=== PATIENT | female | born 1945 | race Caucasian/White ===

== ENCOUNTER 2023-10-06 22:57 | Inpatient (IN) | payer OTHER, MEDICARE ==
[2023-10-06 23:17] VITALS: BMI 31.7
[2023-10-06] MEDS ORDERED: methylPREDNISolone NA SUCC 125 MG/2 ML VIAL ONE (23:53)
[2023-10-07] MEDS: ALBUTEROL SO4 2.5/IPRATROPIUM 0.5 INH SOL 3 ML VIAL.NEB. NEB SCH (00:14)
[2023-10-07] MEDS: methylPREDNISolone NA SUCC 125 MG/2 ML VIAL IVPUSH ONE (00:14)
[2023-10-07] MEDS ORDERED: ALBUTEROL SO4 2.5/IPRATROPIUM 0.5 INH SOL 3 ML VIAL.NEB. NEB ONE (00:15)
[2023-10-07 00:31] LABS: BASO % 0.1 % (0-2.0); EOS % 0.1 % (0-4.5); HEMATOCRIT 32.7 % (32.4-45.2); HEMOGLOBIN 11.2 GM/dL (10.7-15.3); LYMPH % 17.1 % (8-40); MCHC 34.2 g/dl (32.0-36.0); MEAN CELL VOLUME 93.5 fl (80-96); MEAN PLT VOLUME 7.8 fl (7.5-11.1); MONO % 2.9 % (3.8-10.2); NEUT % 79.8 % (42.8-82.8); PLATELET COUNT 130 10^3/uL (134-434); RBC 3.49 M/mm3 (3.60-5.2); WHITE BLOOD COUNT 5.9 K/mm3 (4.0-10.0)
[2023-10-07 00:53] LABS: POTASSIUM 4.5 mmol/L (3.5-5.1)
[2023-10-07 00:55] LABS: ALBUMIN 3.4 g/dl (3.4-5.0); BLOOD UREA NITROGEN 24.2 mg/dL (7-18); CALCIUM 8.6 mg/dL (8.5-10.1); MAGNESIUM 1.4 mg/dL (1.8-2.4)
[2023-10-07 00:58] LABS: CREATININE 1.5 mg/dL (0.55-1.3)
[2023-10-07 01:00] LABS: TOT PROT 6.7 g/dl (6.4-8.2)
[2023-10-07] MEDS ORDERED: AZITHROMYCIN IVPB 500 MG/250 ML BAG IVPB ONE ×2 (01:05→22:01)
[2023-10-07] MEDS: AZITHROMYCIN IVPB 500 MG in DEXTROSE 5%-WATER - 250 ML IVPB ONE (01:22)
[2023-10-07] MEDS ORDERED: FUROSEMIDE 40 MG/4 ML INJECTABLE VIAL ONE (02:57)
[2023-10-07] MEDS: FUROSEMIDE 40 MG/4 ML INJECTABLE VIAL IVPUSH ONE ×2 (03:05→09:51)
[2023-10-07] MEDS ORDERED: CEFTRIAXONE 1 GM/50 ML BAG ONE ×2 (04:15→22:01)
[2023-10-07] MEDS: CEFTRIAXONE 1,000 MG in DEXTROSE 5%-WATER - 50 ML IVPB ONE (04:22)
[2023-10-07] MEDS: ACETAMINOPHEN 1000 MG/100 ML BAG IVPB ONE (05:45)
[2023-10-07 06:13] LABS: N-TERMINAL BNP 3697.9 pg/ml (5-450)
[2023-10-07] MEDS: INSULIN ASPART SLIDING SCALE (NOVOLOG) 1 VIAL SQ SCH ×2 (09:37→22:27)
[2023-10-07] MEDS: LEVOTHYROXINE NA 50 MCG TABLET (FP) PO SCH (09:50)
[2023-10-07] MEDS: methylPREDNISolone NA SUCC 40 MG/1 ML VIAL IVPUSH SCH (09:50)
[2023-10-07] MEDS: PANTOPRAZOLE SOD 40 MG SUSPENSION PACKET PO SCH (09:50)
[2023-10-07] MEDS ORDERED: ALBUTEROL SO4 2.5/IPRATROPIUM 0.5 INH SOL 3 ML VIAL.NEB. NEB PRN (10:38)
[2023-10-07] MEDS ORDERED: ACETAMINOPHEN 1000 MG/100 ML BAG IVPB PRN (12:00)
[2023-10-07] MEDS: guaiFENesin 200 MG/10 ML 10 ML UNIT-DOSE CUPS PO PRN (13:03)
[2023-10-07] MEDS ORDERED: INSULIN (LEVEMIR) 100 UNITS/ML UNITS SQ SCH (22:00)
[2023-10-07] MEDS ORDERED: ATORVASTATIN CA 10 MG TABLET (FP) ONE (22:01)
[2023-10-07] MEDS ORDERED: methylPREDNISolone NA SUCC 40 MG/1 ML VIAL ONE (22:01)
[2023-10-07] MEDS: INSULIN (LEVEMIR) 100 UNITS/ML UNITS SQ SCH (22:26)
[2023-10-07] MEDS: CEFTRIAXONE 1 GM in DEXTROSE 5%-WATER - 50 ML IVPB SCH (22:27)
[2023-10-07] MEDS: AZITHROMYCIN IVPB 500 MG/250 ML BAG IVPB SCH (22:27)
[2023-10-07] MEDS: ATORVASTATIN CA 10 MG TABLET (FP) PO SCH (22:27)
[2023-10-08 08:21] LABS: INR 1.02 (0.83-1.09); PROTHROMBIN TIME (PATIENT) 11.8 SEC (9.7-13.0)
[2023-10-08 08:24] LABS: ACTIVATED PTT 22.9 SECONDS (25.2-36.5)
[2023-10-08 08:38] LABS: HEMATOCRIT 34.2 % (32.4-45.2); HEMOGLOBIN 11.3 GM/dL (10.7-15.3); MCH 30.8 pg (25.7-33.7); MCHC 33.1 g/dl (32.0-36.0); MEAN CELL VOLUME 93.2 fl (80-96); MEAN PLT VOLUME 8.2 fl (7.5-11.1); PLATELET COUNT 152 10^3/uL (134-434); POTASSIUM 4.6 mmol/L (3.5-5.1); RBC 3.67 M/mm3 (3.60-5.2); RDW 13.8 % (11.6-15.6)
[2023-10-08 08:45] LABS: CALCIUM 8.6 mg/dL (8.5-10.1)
[2023-10-08 08:46] LABS: ALBUMIN 3.2 g/dl (3.4-5.0); BLOOD UREA NITROGEN 45.6 mg/dL (7-18); MAGNESIUM 1.9 mg/dL (1.8-2.4)
[2023-10-08 08:47] LABS: TOT PROT 6.5 g/dl (6.4-8.2)
[2023-10-08 08:48] LABS: BILIRUBIN,TOTAL 0.7 mg/dL (0.2-1); PHOSPHOROUS 3.9 mg/dL (2.5-4.9)
[2023-10-08 08:49] LABS: CREATININE 1.4 mg/dL (0.55-1.3)
[2023-10-08] MEDS ORDERED: PANTOPRAZOLE 40 MG TABLET PO ONE (09:14)
[2023-10-08] MEDS ORDERED: LEVOTHYROXINE NA 50 MCG TABLET (FP) ONE (09:15)
[2023-10-08] MEDS ORDERED: methylPREDNISolone NA SUCC 40 MG/1 ML VIAL ONE (09:15)
[2023-10-08 10:00] LABS: ANISOCYTOSIS 0; MACROCYTOSIS 0
[2023-10-08] MEDS: HEPARIN NA (PORCINE) 5,000 UNITS/ML 1ML VIAL SQ SCH (15:31)
[2023-10-08] MEDS: INSULIN (LEVEMIR) 100 UNITS/ML UNITS SQ SCH (21:41)
[2023-10-09] MEDS: ACETAMINOPHEN 325 MG TABLET (FP) PO PRN (09:42)
[2023-10-09] MEDS: FUROSEMIDE 40 MG/4 ML INJECTABLE VIAL IVPUSH ONE (11:49)
[2023-10-10 07:20] LABS: BASO % 0.2 % (0-2.0); HEMATOCRIT 35.2 % (32.4-45.2); HEMOGLOBIN 11.9 GM/dL (10.7-15.3); LYMPH % 11.7 % (8-40); MCH 31.3 pg (25.7-33.7); MCHC 33.7 g/dl (32.0-36.0); MEAN CELL VOLUME 92.7 fl (80-96); MEAN PLT VOLUME 8.4 fl (7.5-11.1); MONO % 3.4 % (3.8-10.2); NEUT % 84.7 % (42.8-82.8); PLATELET COUNT 210 10^3/uL (134-434); RBC 3.79 M/mm3 (3.60-5.2); RDW 13.9 % (11.6-15.6); WHITE BLOOD COUNT 10.6 K/mm3 (4.0-10.0)
[2023-10-10 07:32] LABS: POTASSIUM 4.1 mmol/L (3.5-5.1)
[2023-10-10 07:38] LABS: CALCIUM 9.1 mg/dL (8.5-10.1)
[2023-10-10 07:39] LABS: ALBUMIN 2.8 g/dl (3.4-5.0); BLOOD UREA NITROGEN 54.5 mg/dL (7-18)
[2023-10-10 07:42] LABS: CREATININE 1.1 mg/dL (0.55-1.3)
[2023-10-10 07:44] LABS: BILIRUBIN,TOTAL 0.7 mg/dL (0.2-1); TOT PROT 6.3 g/dl (6.4-8.2)
[2023-10-10] MEDS: AZITHROMYCIN 250 MG TABLET PO SCH (22:48)
[2023-10-11] MEDS: methylPREDNISolone NA SUCC 40 MG/1 ML VIAL IVPUSH SCH (21:45)
[2023-10-11] MEDS ORDERED: INSULIN (NOVOLOG) ASPART 100 UNITS/ML 10ML VIAL ONE (21:54)
[2023-10-12 08:46] VITALS: BP 141/63; PULSE 63; RESP 20; TEMP 97.7
== END 2023-10-12 14:46 | disposition home or self-care (01) | DRG 193 ==
LOC: JER 22:57 → JERBED 10-07 03:12 → OBSVTOIN 10-07 09:39 → J4W 10-08 11:39
PROVIDERS: ADMIT Internal Medicine; ATTEND Internal Medicine
DX: J18.9 Pneumonia, unspecified organism (principal); I50.31 Acute diastolic (congestive) heart failure; I11.0 Hypertensive heart disease with heart failure; E03.9 Hypothyroidism, unspecified; E78.5 Hyperlipidemia, unspecified; E11.9 Type 2 diabetes mellitus without complications; B97.81 Human metapneumovirus as the cause of diseases classified elsewhere; J98.01 Acute bronchospasm
CPT/HCPCS: 0241U-QW; 36415; 71045-TC-FY; 80048; 80053; 82962; 83735; 83880; 84100; 84484; 85025; 85610; 85730; 87040; 87633; 87899; 93005; 93010; 93306-TC; 97116-GP; 97162-GP; 99285-25; G0378; J0131; J1644

== ENCOUNTER 2023-10-26 17:51 | Emergency (ER) | payer OTHER, MEDICARE ==
[2023-10-26] MEDS ORDERED: OXYMETAZOLINE 0.05% NASAL SOLUTION 15 ML BOTTLE NS ONE (18:07)
[2023-10-26 18:11] VITALS: BP 126/69; PULSE 87; RESP 20; TEMP 98.2; BMI 25.7
[2023-10-26] MEDS: OXYMETAZOLINE 0.05% NASAL SOLUTION 15 ML BOTTLE NS ONE (18:48)
== END 2023-10-26 18:58 | disposition home or self-care (01) ==
LOC: FER 17:51
DX: R04.0 Epistaxis (principal)
CPT/HCPCS: 99283-25

== ENCOUNTER 2023-12-19 22:41 | Inpatient (IN) | payer OTHER, MEDICARE ==
[2023-12-19] MEDS: SODIUM CHLORIDE 0.9% 500 ML INFUS.BAG IV ONE (23:18)
[2023-12-19 23:31] LABS: INR 1.03 (0.83-1.09)
[2023-12-19 23:35] LABS: HEMOGLOBIN 13.2 G/dL (10.7-15.3); MCH 31.9 pg (25.7-33.7); MEAN CELL VOLUME 96.8 fl (80-96); MEAN PLT VOLUME 7.4 fl (7.5-11.1); PLATELET COUNT 190.4 10^3/uL (134-434); RBC 4.13 10^6/uL (3.60-5.2); RDW 15.7 % (11.6-15.6); WHITE BLOOD COUNT 13.4 10^3/uL (4.0-10.8)
[2023-12-19 23:42] LABS: ALBUMIN 4.7 g/dl (3.4-5.0); BILIRUBIN,TOTAL 1.1 mg/dl (0.2-1); CALCIUM 9.3 mg/dl (8.5-10.1); CREATININE 2.2 mg/dl (0.6-1.3); POTASSIUM 4.6 mmol/L (3.5-5.1); TOT PROT 7.1 g/dl (6.4-8.2)
[2023-12-19 23:53] LABS: PLATELET ESTIMATE ADEQUATE
[2023-12-20] MEDS ORDERED: INSULIN REGULAR HUMAN 100 UNITS/ML *VIAL ONE (00:56)
[2023-12-20] MEDS: INSULIN REGULAR HUMAN 100 UNITS/ML *VIAL IVPUSH ONE (00:58)
[2023-12-20 02:15] VITALS: BMI 25.4
[2023-12-20] MEDS: DEXTROSE 5%-NORMAL SALINE 1,000 ML IV SCH (02:25)
[2023-12-20 04:05] LABS: MEAN PLT VOLUME 7.2 fl (7.5-11.1)
[2023-12-20 04:10] LABS: BASO % 0.1 % (0-2.0); HEMATOCRIT 37.8 % (32.4-45.2); HEMOGLOBIN 12.8 GM/dL (10.7-15.3); LYMPH % 7.7 % (8-40); MCH 32.3 pg (25.7-33.7); MCHC 33.8 g/dl (32.0-36.0); MEAN CELL VOLUME 95.7 fl (80-96); MONO % 4.1 % (3.8-10.2); NEUT % 88.1 % (42.8-82.8); PLATELET COUNT 194 10^3/uL (134-434); RBC 3.95 M/mm3 (3.60-5.2); RDW 16.7 % (11.6-15.6); WHITE BLOOD COUNT 13.8 K/mm3 (4.0-10.0)
[2023-12-20 04:23] LABS: POTASSIUM 4.3 mmol/L (3.5-5.1)
[2023-12-20 04:24] LABS: CALCIUM 8.6 mg/dL (8.5-10.1)
[2023-12-20 04:25] LABS: BLOOD UREA NITROGEN 46.6 mg/dL (7-18)
[2023-12-20 04:28] LABS: CREATININE 2.1 mg/dL (0.55-1.3)
[2023-12-20] MEDS: DEXTROSE 5%-0.45% SALINE 1,000 ML IV SCH (06:45)
[2023-12-20] MEDS: INSULIN (NOVOLOG) ASPART 100 UNITS/ML 10ML VIAL SQ ONE ×2 (06:46→17:23)
[2023-12-20] MEDS: INSULIN (LEVEMIR) 100 UNITS/ML UNITS SQ SCH (10:02)
[2023-12-20] MEDS: HEPARIN NA (PORCINE) 5,000 UNITS/ML 1ML VIAL SQ SCH (10:02)
[2023-12-20] MEDS: CEFTRIAXONE 1 GM in DEXTROSE 5%-WATER - 50 ML IVPB SCH (10:02)
[2023-12-20 15:34] LABS: EPITHELIAL CELLS 0-5 /hpf
[2023-12-20] MEDS ORDERED: ACETAMINOPHEN INJECTION 100 ML IVPB PRN (15:35)
[2023-12-20] MEDS: SODIUM CHLORIDE 1,000 ML IV SCH (17:24)
[2023-12-20] MEDS: SODIUM CHLORIDE 250 ML IV STA (17:24)
[2023-12-20] MEDS ORDERED: ACETAMINOPHEN 1000 MG/100 ML BAG IVPB PRN (19:00)
[2023-12-20] MEDS: DOXYCYCLINE INJECTION 100 MG in DEXTROSE 5%-WATER 100 ML IVPB SCH (22:23)
[2023-12-21 08:27] LABS: HEMATOCRIT 37.6 % (32.4-45.2); HEMOGLOBIN 12.1 G/dL (10.7-15.3); MCH 30.9 pg (25.7-33.7); MCHC 32.1 g/dl (32.0-36.0); MEAN CELL VOLUME 96.2 fl (80-96); MEAN PLT VOLUME 8.2 fl (7.5-11.1); PLATELET COUNT 131.1 10^3/uL (134-434); RBC 3.91 10^6/uL (3.60-5.2); RDW 15.9 % (11.6-15.6); WHITE BLOOD COUNT 8.9 10^3/uL (4.0-10.8)
[2023-12-21 08:56] LABS: ALBUMIN 3.7 g/dl (3.4-5.0); CALCIUM 8.5 mg/dl (8.5-10.1); CREATININE 1.9 mg/dl (0.6-1.3); POTASSIUM 4.3 mmol/L (3.5-5.1); TOT PROT 5.5 g/dl (6.4-8.2)
[2023-12-21 09:34] LABS: BILIRUBIN,TOTAL 0.7 mg/dl (0.2-1)
[2023-12-21 11:17] LABS: PLATELET ESTIMATE SLT DECREASE
[2023-12-21] MEDS: INSULIN ASPART SLIDING SCALE (NOVOLOG) 1 VIAL SQ SCH (12:29)
[2023-12-21] MEDS: CEFEPIME HCL 2 GM VIAL (RESTRICTED TO ID) IVPB ONE (14:17)
[2023-12-21] MEDS: CEFEPIME 2 GM in DEXTROSE 5%-WATER 100 ML IVPB ONE (14:20)
[2023-12-21] MEDS: ENOXAPARIN NA (PORCINE) 80 MG/0.8 ML DISP.SYRIN SQ SCH (14:25)
[2023-12-21] MEDS: AMIODARONE IN DEXTROSE,ISO-OSM 150 MG/100 ML BAG IVPB ONE (15:13)
[2023-12-21] MEDS: AZITHROMYCIN IVPB 500 MG/250 ML BAG IVPB SCH (15:19)
[2023-12-21] MEDS: LACTATED RINGERS SOLUTION 1,000 ML/1,000 ML INFUS.BAG IV STA (15:24)
[2023-12-21] MEDS: AMIODARONE IN DEXTROSE,ISO-OSM 360 MG/200 ML BAG IV SCH ×2 (15:28→20:26)
[2023-12-21] MEDS: VANCOMYCIN/WATER FOR INJ (PEG) 1,000 MG/200 ML BAG IVPB ONE (17:21)
[2023-12-21] MEDS: LACTATED RINGERS SOLUTION 1,000 ML/1,000 ML INFUS.BAG IV SCH (18:06)
[2023-12-21] MEDS ORDERED: INSULIN (NOVOLOG) ASPART 100 UNITS/ML 10ML VIAL ONE (21:30)
[2023-12-22 00:24] LABS: POTASSIUM 3.5 mmol/L (3.5-5.1)
[2023-12-22 00:25] LABS: BLOOD UREA NITROGEN 46.9 mg/dL (7-18); CALCIUM 7.9 mg/dL (8.5-10.1)
[2023-12-22 00:26] LABS: ALBUMIN 2.6 g/dl (3.4-5.0)
[2023-12-22 00:29] LABS: CREATININE 1.4 mg/dL (0.55-1.3)
[2023-12-22 00:31] LABS: BILIRUBIN,TOTAL 0.4 mg/dL (0.2-1); TOT PROT 5.3 g/dl (6.4-8.2)
[2023-12-22] MEDS ORDERED: INSULIN (NOVOLOG) ASPART 100 UNITS/ML 10ML VIAL ONE ×2 (06:34→20:40)
[2023-12-22 07:39] LABS: BASO % 0.2 % (0-2.0); EOS % 0.3 % (0-4.5); HEMATOCRIT 30.9 % (32.4-45.2); HEMOGLOBIN 10.7 GM/dL (10.7-15.3); LYMPH % 14.9 % (8-40); MCH 32.4 pg (25.7-33.7); MCHC 34.6 g/dl (32.0-36.0); MEAN CELL VOLUME 93.6 fl (80-96); MEAN PLT VOLUME 7.7 fl (7.5-11.1); NEUT % 80.6 % (42.8-82.8); PLATELET COUNT 122 10^3/uL (134-434); RDW 15.9 % (11.6-15.6); WHITE BLOOD COUNT 6.6 K/mm3 (4.0-10.0)
[2023-12-22 07:41] LABS: INR 1.07 (0.83-1.09); PROTHROMBIN TIME (PATIENT) 12.4 SEC (9.7-13.0)
[2023-12-22 07:54] LABS: POTASSIUM 3.4 mmol/L (3.5-5.1)
[2023-12-22 07:57] LABS: BLOOD UREA NITROGEN 40.9 mg/dL (7-18); CALCIUM 7.5 mg/dL (8.5-10.1)
[2023-12-22 07:58] LABS: ALBUMIN 2.4 g/dl (3.4-5.0); MAGNESIUM 1.5 mg/dL (1.8-2.4)
[2023-12-22 08:01] LABS: CREATININE 1.2 mg/dL (0.55-1.3)
[2023-12-22 08:02] LABS: BILIRUBIN,TOTAL 0.5 mg/dL (0.2-1); TOT PROT 4.9 g/dl (6.4-8.2)
[2023-12-22] MEDS: POTASSIUM CHLORIDE ORAL LIQUID 20 MEQ/15 ML PO ONE (08:57)
[2023-12-22] MEDS: NAPH,MB-DB/K PH,MBDB POWDER PACKET PO ONE (08:57)
[2023-12-22] MEDS: MAGNESIUM 2GM/50ML STERILE WATER IVPB IVPB ONE (08:57)
[2023-12-22] MEDS: PANTOPRAZOLE 40 MG TABLET PO SCH (09:32)
[2023-12-22 14:00] LABS: BILIRUBIN,DIRECT 0.2 mg/dL (0.0-0.2)
[2023-12-22] MEDS ORDERED: NOREPINEPHRINE BITARTRATE 4 MG/4 ML ML IV ONE (16:45)
[2023-12-22] MEDS: ATORVASTATIN CA 10 MG TABLET (FP) PO SCH ×2 (21:12→23:06)
[2023-12-22] MEDS ORDERED: ACETAMINOPHEN 1000 MG/100 ML BAG IVPB PRN (21:29)
[2023-12-22] MEDS ORDERED: metoPROLOL SUCCINATE 25 MG TAB.SR.24H (FP) PO SCH ×2 (22:00)
[2023-12-22] MEDS: LACTATED RINGERS SOLUTION 1,000 ML/1,000 ML INFUS.BAG IV SCH (23:04)
[2023-12-22] MEDS: INSULIN (LEVEMIR) 100 UNITS/ML UNITS SQ SCH (23:05)
[2023-12-22] MEDS: INSULIN ASPART SLIDING SCALE (NOVOLOG) 1 VIAL SQ SCH (23:06)
[2023-12-23] MEDS: metoPROLOL SUCCINATE 25 MG TAB.SR.24H (FP) PO SCH (00:39)
[2023-12-23] MEDS: LEVOTHYROXINE NA 50 MCG TABLET (FP) PO SCH (06:08)
[2023-12-23] MEDS ORDERED: LEVOTHYROXINE NA 50 MCG TABLET (FP) PO SCH (07:00)
[2023-12-23 07:44] LABS: HEMATOCRIT 28.5 % (32.4-45.2); HEMOGLOBIN 9.8 GM/dL (10.7-15.3); MCH 32.2 pg (25.7-33.7); MCHC 34.3 g/dl (32.0-36.0); MEAN CELL VOLUME 93.9 fl (80-96); MEAN PLT VOLUME 7.7 fl (7.5-11.1); PLATELET COUNT 128 10^3/uL (134-434); RBC 3.04 M/mm3 (3.60-5.2); RDW 16.7 % (11.6-15.6); WHITE BLOOD COUNT 5.6 K/mm3 (4.0-10.0)
[2023-12-23 08:01] LABS: POTASSIUM 3.5 mmol/L (3.5-5.1)
[2023-12-23 08:10] LABS: ALBUMIN 2.4 g/dl (3.4-5.0); BLOOD UREA NITROGEN 23.7 mg/dL (7-18); CALCIUM 8.1 mg/dL (8.5-10.1); MAGNESIUM 1.8 mg/dL (1.8-2.4)
[2023-12-23 08:14] LABS: PHOSPHOROUS 1.2 mg/dL (2.5-4.9)
[2023-12-23 08:16] LABS: BILIRUBIN,TOTAL 0.6 mg/dL (0.2-1); TOT PROT 4.8 g/dl (6.4-8.2)
[2023-12-23] MEDS ORDERED: ENOXAPARIN NA (PORCINE) 40 MG/0.4 ML DISP.SYRIN SQ SCH (10:00)
[2023-12-23] MEDS: ENOXAPARIN NA (PORCINE) 40 MG/0.4 ML DISP.SYRIN SQ SCH (10:11)
[2023-12-23] MEDS: PANTOPRAZOLE 40 MG TABLET PO SCH (10:12)
[2023-12-23] MEDS: POTASSIUM PHOSPHATE 30 MM in DEXTROSE 5%-WATER - 500 ML IVPB ONE (14:31)
[2023-12-23] MEDS: APIXABAN 5 MG TABLET PO SCH (14:31)
[2023-12-23 19:45] VITALS: RESP 18
[2023-12-24 01:52] VITALS: TEMP 98.4
[2023-12-24 07:29] LABS: BASO % 0.3 % (0-2.0); EOS % 2.7 % (0-4.5); HEMATOCRIT 27.6 % (32.4-45.2); HEMOGLOBIN 9.3 GM/dL (10.7-15.3); LYMPH % 35.4 % (8-40); MCHC 33.8 g/dl (32.0-36.0); MEAN CELL VOLUME 94.8 fl (80-96); MEAN PLT VOLUME 7.4 fl (7.5-11.1); MONO % 7.9 % (3.8-10.2); NEUT % 53.7 % (42.8-82.8); PLATELET COUNT 130 10^3/uL (134-434); RBC 2.91 M/mm3 (3.60-5.2); RDW 16.3 % (11.6-15.6); WHITE BLOOD COUNT 5.4 K/mm3 (4.0-10.0)
[2023-12-24 07:54] LABS: POTASSIUM 3.9 mmol/L (3.5-5.1)
[2023-12-24 08:11] LABS: ALBUMIN 2.4 g/dl (3.4-5.0); BLOOD UREA NITROGEN 18.4 mg/dL (7-18); CALCIUM 8.6 mg/dL (8.5-10.1)
[2023-12-24 08:14] LABS: CREATININE 0.9 mg/dL (0.55-1.3)
[2023-12-24 08:16] LABS: BILIRUBIN,TOTAL 1.1 mg/dL (0.2-1); TOT PROT 4.8 g/dl (6.4-8.2)
[2023-12-24 09:44] VITALS: BP 98/33; PULSE 57
[2023-12-24] MEDS: metoPROLOL SUCCINATE 25 MG TAB.SR.24H (FP) PO SCH (09:47)
== END 2023-12-24 14:02 | disposition home or self-care (01) | DRG 871 ==
LOC: FER 22:41 → FM/S 12-20 01:16 → JICU 12-21 14:16 → J4W 12-22 16:30
PROVIDERS: ADMIT Student in an Organized Health Care Education/Training Program; ATTEND Internal Medicine
DX: A41.9 Sepsis, unspecified organism (principal); G93.41 Metabolic encephalopathy; E11.10 Type 2 diabetes mellitus with ketoacidosis without coma; N17.9 Acute kidney failure, unspecified; J98.11 Atelectasis; I50.32 Chronic diastolic (congestive) heart failure; E87.1 Hypo-osmolality and hyponatremia; N39.0 Urinary tract infection, site not specified; E86.0 Dehydration; I48.0 Paroxysmal atrial fibrillation; D69.6 Thrombocytopenia, unspecified; E03.9 Hypothyroidism, unspecified; I11.0 Hypertensive heart disease with heart failure; E78.5 Hyperlipidemia, unspecified; E11.9 Type 2 diabetes mellitus without complications; R19.7 Diarrhea, unspecified; E87.6 Hypokalemia; R09.02 Hypoxemia
CPT/HCPCS: 0241U-QW; 36415; 70450-TC; 71045-TC-FY; 71250-TC; 76775-TC; 80048; 80053; 80076; 81003; 81015; 82010; 82308; 82436; 82570; 82962; 83036; 83605; 83735; 83880; 84100; 84133; 84156; 84300; 84439; 84443; 84484; 85025; 85027; 85610; 85730; 86850; 86900; 86901; 87040; 87045; 87046; 87086; 87186; 87205; 87899; 93005; 93306-TC; 97116-GP; 97161-GP; 99285-25; G0480; J0282; J1644